=== PATIENT | female | born 1980 | race Caucasian/White ===

== ENCOUNTER 2016-12-22 23:30 | Emergency (ER) | payer MEDICAID ==
--- NOTE | 2016-12-22 23:35 | ED Physician Chart ---
Chief Complaint/HPI - Patient Information Date Seen:: 12/22/16 Time Seen:: 23:34 Chief Complaint:: facial swelling History of Present Illness:: 36-year-old female history of sialoceles, complains of acute, constant, moderate to severe, 8 out of 10, right-sided facial swelling that started yesterday and became acutely worse about one hour ago. Has associated right facial pain. Symptoms are similar to when she's had sialoceles in the past. Tried sucking on a lemon drop but symptoms persisted. Denies fevers, headache, acute vision changes, hearing loss, chest pain or palpitations, nausea, vomiting , abdominal pain. Historian:: Patient Review:: Nurse's Note Reviewed Review of Systems - Review of Systems Other: Complete system review otherwise unremarkable except as noted in history of present illness. Past Medical History - Past Medical History Past Medical History: Other (sialocele, chronic neck pain) Family History: None Social History: Non Smoker, No Alcohol, No Drug Use, Employed Surgical History: other (cervical fusion) Psychiatricy History: None Medication: Reviewed Family Medical History - Family Member Mother History Unknown: Yes Ethnicity: Non- Physical Exam - Physical Examination Other:: INITIAL VITAL SIGNS: Reviewed by me GENERAL: Alert and interactive. No acute distress HEAD: Head is normocephalic and atraumatic EYES: EOMI. PERRL. No scleral icterus. No conjunctival injection ENT: Moist mucous membranes. NECK: Supple. No masses. Full range of motion RESPIRATORY: No tachypnea. Clear breath sounds bilaterally. No wheezing, rales, or rhonchi CV: Regular rate and rhythm. No murmurs, rubs, or gallops ABDOMEN: Soft, non-distended, non-tender. No guarding. No rebound. No masses. EXTREMITIES: No deformity. No cyanosis. No edema. SKIN: Warm and dry. No obvious rashes. NEUROLOGIC: Alert and oriented. Face is symmetric. Speech is normal. Moves all extremities equally. Motor and sensory distally intact. ED Septic Shock - . Is Septic Shock (SBP<90, OR Lactate>4 mmol\L) present?: No Reassessment (Disposition) - Reassessment Reassessment:: Patient has history of sialoceles due to sialolithiasis presents with symptoms that are similar to those that she's had in the past. No signs of cellulitis however there is concern for developing infection at this process and longer. We did give Augmentin here in the ER. Also gave intermuscular Toradol for pain and inflammation. Attempted to milk the salivary gland here in the ER. Provided prescription for Augmentin. Recommended continued sialogogues. Follow -up PCP 1-2 days. Return to ER Precautions given. Patient says she understands and agrees the plan. Reassessment Condition:: Improved - Diagnosis Diagnosis:: Acute right-sided facial swelling due to acute sialocele, and acute sialolithiasis - Aftercare/Follow up Instructions Aftercare/Follow-Up Instructions:: Counseled pt regarding lab results/diagnosis & need follow up, Refer to Discharge Instructions Medication Prescribed:: Augmentin Ibuprofen - Patient Disposition Discharge/Transfer:: Home Time:: 23:59 Condition at Disposition:: Improved ED Discharge Plan - Patient Disposition Admit/Discharge/Transfer: PT DISCHARGED HOME Condition at Disposition: Improved Instructions: Salivary Stone, Salivary Gland Infection
[2016-12-22] MEDS ORDERED: Amoxicillin/Clavulanat 875/125 Tab ONE (23:54)
[2016-12-23] MEDS ORDERED: Amoxicillin/Clavulanat 875/125 Tab PO ONE (00:01)
== END 2016-12-23 00:28 | disposition home or self-care (01) ==
LOC: ER 23:30
DX: K11.5 Sialolithiasis (principal); R22.0 Localized swelling, mass and lump, head
CPT/HCPCS: 99283; 96372; J1885; Z7502; Z7610

== ENCOUNTER 2017-01-28 10:49 | Emergency (ER) | payer MEDICAID ==
--- NOTE | 2017-01-28 11:46 | ED Physician Chart ---
Chief Complaint/HPI - Patient Information Date Seen:: 01/28/17 Time Seen:: 11:06 Chief Complaint:: RIGHT FOOT BIG TOE History of Present Illness:: THIS IS A 36 YO FEMALE WHO HIT HER RIGHT FOOT BIG AGAINST A CONCRETE CURB LAST NIGHT. SHE IS NOW CONCERNED ABOUT THE PAIN, SWELLING, BLUISH COLORATION BUT NO BROKEN SKIN. SHE DENIES ALL OTHER INJURIES. Allergies:: Allergies Allergy/AdvReac Type Severity Reaction Status Date / Time No Known Allergies Allergy Verified 12/22/16 23:52 Vitals:: Vital Signs - 8 hr 01/28/17 11:01 Temp 98.4 F HR 74 RR 16 BP 146/78 Historian:: Patient Review:: Nurse's Note Reviewed Review of Systems - Review of Systems General/Constitutional: No fever, No chills, No weight loss, No weakness, No diaphoresis, No edema, No loss of appetite Skin: No skin lesions, No rash, No bruising Head: No headache, No light-headedness Eyes: No loss of vision, No pain, No diplopia ENT: No earache, No nasal drainage, No sore throat, No tinnitus Neck: No neck pain, No swelling, No thyromegaly, No stiffness, No mass noted Cardio Vascular: No chest pain, No palpitations, No PND, No orthopnea, No edema Pulmonary: No SOB, No cough, No sputum, No wheezing GI: No nausea, No vomiting, No diarrhea, No pain, No melena, No hematochezia, No constipation, No hematemesis G/U: No dysuria, No frequency, No hematuria Musculoskeletal: Bone or joint pain (THERE IS PAIN IN THE RIGHT BIG TOE.), No back pain, No muscle pain Endocrine: No polyuria, No polydipsia Psychiatric: No prior psych history, No depression, No anxiety, No suicidal ideation Hematopoietic: No bruising, No lymphadenopathy Allergic/Immuno: No urticaria, No angioedema Neurological: No syncope, No focal symptoms, No weakness, No paresthesia, No headache, No seizure, No dizziness, No confusion, No vertigo Past Medical History - Past Medical History Obtainable: Yes Social History: Non Smoker, No Alcohol, No Drug Use Surgical History: other (NECK SURGERY) Family Medical History - Family Member Mother History Unknown: Yes Ethnicity: Non- Hx Family Cancer: No Hx Family Congestive Heart Failure: No Hx Family Hypertension: No Hx Family Diabetes: No Hx Family Seizures: No Hx Family Dementia: No Hx Family HIV: No Hx Family Hepatitis: No Hx Family Tuberculosis: No Physical Exam - Physical Examination General/Constitutional: Awake, Well-developed, well-nourished, Alert, No distress, GCS 15, Non-toxic appearing, Ambulatory Head: Atraumatic Eyes: Lids, conjuctiva normal, PERRL, EOMI Skin: Nl inspection, No rash, No skin lesions, No ecchymosis, Well hydrated, No lymphadenopathy ENMT: External ears, nose nl, Nasal exam nl, Lips, teeth, gums nl Neck: Nontender, Full ROM w/o pain, No JVD, No nuchal rigidity, No bruit, No mass, No stridor Respiratory: Nl effort/Exclusion, Clear to Auscultation, No Wheeze/Rhonchi/Rales Cardio Vascular: RRR, No murmur, gallop, rubs, NL S1 S2 GI: No tenderness/rebounding/guarding, No organomegaly, No hernia, Normal BS's, Nondistended, No mass/bruits, No McBurney tenderness : No CVA tenderness Extremities: No tenderness or effusion, Full ROM, normal strength in all extremities, No edema, Normal digits & nails Neuro/Psych: Alert/oriented, DTR's symmetric, Normal sensory exam, Normal motor strength, Judgement/insight normal, Mood normal, Normal gait, No focal deficits Misc: normal gait, Normal back, No paraspinal tenderness Labs/Radiology/EKG Results - Radiology Results Results: RIGHT BIG TOE X-RAY = NO FX SEEN. Assessment - Assessment General Assessment: CONTUSION OF THE RIGHT BIG TOE ED Septic Shock - . Is Septic Shock (SBP<90, OR Lactate>4 mmol\L) present?: No - <6hrs of presentation: Vital Signs: Vital Signs - 8 hr 01/28/17 11:01 Temp 98.4 F HR 74 RR 16 BP 146/78 Reassessment (Disposition) - Reassessment Reassessment Condition:: Unchanged - Diagnosis Diagnosis:: CONTUSION OF THE RIGHT BIG TOE - Aftercare/Follow up Instructions Aftercare/Follow-Up Instructions:: Counseled pt regarding lab results/diagnosis & need follow up, Refer to Discharge Instructions, Counseled pt & family regarding lab results/diagnosis & need follow up - Patient Disposition Discharge/Transfer:: Home Condition at Disposition:: Unchanged ED Discharge Plan - Patient Disposition Admit/Discharge/Transfer: PT DISCHARGED HOME Condition at Disposition: Unchanged Instructions: Toe Injuries and Amputations Additional Instructions: PLEASE WEAR ORTHO SHOES WHEN AMBULATING. TAKE OVER THE COUNTER IBUPROFEN.
--- NOTE | 2017-01-28 11:52 | Diagnostic Imaging Report ---
Right first toe (3 views) HISTORY: Pain, trauma There is slight cortical irregularity involving the distal shaft of the first distal phalanx best appreciated on the lateral view. A nondisplaced fracture cannot be excluded. If symptoms persist, a repeat radiograph in 5-7 days may be helpful. Joint spaces appear normal. IMPRESSION: 1. Subtle changes involving the first distal phalanx. A nondisplaced fracture cannot be definitely excluded. If symptoms persist, a repeat radiograph in 5-7 days may be helpful.
== END 2017-01-28 11:59 | disposition home or self-care (01) ==
LOC: ER 10:49
DX: S90.111A Contusion of right great toe without damage to nail, initial encounter (principal); W22.8XXA Striking against or struck by other objects, initial encounter; Y93.89 Activity, other specified; Y92.89 Other specified places as the place of occurrence of the external cause; Y99.8 Other external cause status
CPT/HCPCS: 73660-TC-T5; Z7502